=== PATIENT | male | born 1940 | race Caucasian/White ===

== ENCOUNTER → 2016-10-31 | Outpatient (CLI) | payer MEDICARE, OTHER | LOC: RAD 07:06 | PROVIDERS: ATTEND Internal Medicine Hematology & Oncology | DX: D47.2 Monoclonal gammopathy (principal) | CPT/HCPCS: 82565; 74183; A9576 ==

== ENCOUNTER 2019-04-17 20:03 | Observation (INO) | payer MEDICARE, OTHER ==
[2019-04-17] MEDS ORDERED: ACETAMINOPHEN 325 MG TABLET PO ONE (20:39)
[2019-04-17] MEDS ORDERED: ONDANSETRON HCL INJ/PF 4 MG/2 ML SDV IV ONE (20:40)
--- NOTE | 2019-04-17 20:42 | ER Document Report ---
ED Medical Screen (RME) - General Chief Complaint: Pain All Over Stated Complaint: BODY ACHES,CHILLS Time Seen by Provider: 04/17/19 20:36 Primary Care Provider: YOABNI HUDSON MD [Primary Care Provider] - Follow up as needed Information source: Patient Notes: Patient presents complaining of shaking, generalized body aches mild cough urinary frequency nausea and diarrhea. Patient states that at home he did have some chest pain although the pain has resolved at this time. Patient with fever of 102 at this time. Family states that patient was recently diagnosed with Crohn's disease. Patient also has a history of hypertension and dyslipidemia. Patient denies any abdominal pain symptoms. I have greeted and performed a rapid initial assessment of this patient. A comprehensive ED assessment and evaluation of the patient, analysis of test results and completion of the medical decision making process will be conducted by additional ED providers. TRAVEL OUTSIDE OF THE [place] IN LAST 30 DAYS: No - Related Data Allergies/Adverse Reactions: doxycycline Allergy (Verified 04/17/19 20:31) Physical Exam - Vital signs Vitals: Temp Pulse Resp BP Pulse Ox 102.4 F H 104 H 18 182/78 H 96 04/17/19 20:28 04/17/19 20:28 04/17/19 20:28 04/17/19 20:28 04/17/19 20:28 - General General appearance: Alert Notes: Mild tachycardia, chest nontender, patient with chills - Cardiovascular Rhythm: Regular, Tachycardia Heart sounds: S1 appreciated, S2 appreciated Course - Vital Signs Vital signs: Temp Pulse Resp BP Pulse Ox 102.4 F H 104 H 18 182/78 H 96 04/17/19 20:28 04/17/19 20:28 04/17/19 20:28 04/17/19 20:28 04/17/19 20:28 Doctor's Discharge - Discharge Referrals: YOBANI HUDSON MD [Primary Care Provider] - Follow up as needed
--- NOTE | 2019-04-17 21:15 | RADIOLOGY REPORT (SQ) ---
EXAM DESCRIPTION: XR CHEST 2 VIEWS COMPLETED DATE/TME: 04/17/2019 20:40 CLINICAL HISTORY: 78 years, Male, cp, mild cough COMPARISON: None. NUMBER OF VIEWS: 2 TECHNIQUE: 2 view chest LIMITATIONS: None. FINDINGS: The heart size is normal. Underlying COPD. Osteopenia. Lungs clear. No pneumothorax IMPRESSION: COPD. Lungs are clear copyright 2011 [employer]- All Rights Reserved
[2019-04-17 21:51] LABS: ABSOLUTE BASOPHILS # (AUTO) 0.1 10^3/uL (0.0-0.2); ABSOLUTE EOSINOPHILS # (AUTO) 0.1 10^3/uL (0.0-0.6); ABSOLUTE LYMPHOCYTES (AUTO) 0.7 10^3/uL (0.5-4.7); ABSOLUTE MONOCYTES (AUTO) 0.5 10^3/uL (0.1-1.4); ABSOLUTE NEUT (AUTO) 11.9 10^3/uL (1.7-8.2); BASOPHILS % (AUTO) 0.4 % (0-2); EOSINOPHILS % (AUTO) 0.7 % (0-6); HEMATOCRIT 41.2 % (37.9-51.0); HEMOGLOBIN 13.7 g/dL (13.5-17.0); LYMPHOCYTES % (AUTO) 5.5 % (13-45); MEAN CORPUSCULAR HEMOGLOBIN 29.4 pg (27.0-33.4); MEAN CORPUSCULAR HGB CONC 33.2 g/dL (32.0-36.0); MEAN CORPUSCULAR VOLUME 89 fl (80-97); MONOCYTES % (AUTO) 3.9 % (3-13); RED BLOOD COUNT 4.65 10^6/uL (4.35-5.55); RED CELL DISTRIBUTION WIDTH 13.8 % (11.5-14.0); SEGMENTED NEUTROPHILS % (AUTO) 89.5 % (42-78); TOTAL CELLS COUNTED % (AUTO) 100 %
[2019-04-17 22:00] LABS: APPEARANCE,URINE CLEAR; BILIRUBIN,URINE NEGATIVE (NEGATIVE); COLOR,URINE YELLOW; GLUCOSE, URINE NEGATIVE (NEGATIVE); KETONES,URINE TRACE mg/dL (NEGATIVE); PROTEIN,URINE 30 mg/dL (NEGATIVE); UROBILINOGEN,URINE NEGATIVE mg/dL (<2.0)
[2019-04-17 22:06] LABS: INTERNATIONAL RATION (INR) 1.03; PROTHROMBIN TIME 13.5 SEC (11.4-15.4)
[2019-04-17 22:10] LABS: A TYPE INFLUENZA AG NEGATIVE (NEGATIVE); B INFLUENZA AG NEGATIVE (NEGATIVE)
[2019-04-17 22:14] LABS: ALBUMIN 4.3 g/dL (3.5-5.0); ALKALINE PHOSPHATASE 69 U/L (38-126); ANION GAP 12 (5-19); ASPARTATE AMINO TRANSFERASE 21 U/L (17-59); BILIRUBIN,DIRECT 0.1 mg/dL (0.0-0.4); BILIRUBIN,TOTAL 0.4 mg/dL (0.2-1.3); BLOOD UREA NITROGEN 21 mg/dL (7-20); CALCIUM 9.7 mg/dL (8.4-10.2); CARBON DIOXIDE 23 mmol/L (22-30); CHLORIDE 105 mmol/L (98-107); GLUCOSE 127 mg/dL (75-110); PLATELET COUNT 295 10^3/uL (150-450); POTASSIUM 3.5 mmol/L (3.6-5.0); TOTAL PROTEIN 7.8 g/dL (6.3-8.2)
[2019-04-17 22:15] LABS: WHITE BLOOD COUNT 13.3 10^3/uL (4.0-10.5)
[2019-04-17 22:42] LABS: VENOUS BLOOD HCO3 23.2 mmol/L (20-32); VENOUS BLOOD PCO2 33.7 mmHg (35-63); VENOUS BLOOD PH 7.46 (7.30-7.42)
[2019-04-18] MEDS ORDERED: ACETAMINOPHEN 325 MG TABLET ONE (00:15)
[2019-04-18] MEDS ORDERED: NORMAL SALINE 1000 ML 1,000 ML IV ONE (02:21)
[2019-04-18] MEDS ORDERED: MORPHINE SULFATE 10 MG/ML INJ IV ONE (02:21)
--- NOTE | 2019-04-18 02:23 | ER Document Report ---
ED General - General Chief Complaint: Pain All Over Stated Complaint: BODY ACHES,CHILLS Time Seen by Provider: 04/17/19 20:36 Notes: Patient is a 78-year-old male that comes emergency department for chief complaint of fever with shaking, generalized body aches, nausea without vomiting, a few loose stools without blood. He reports mild cough but states this is his normal with COPD, he does not currently smoke. He denies chest pain or current headache. Past medical history includes hypertension, type 2 diabetes, and recently diagnosed Crohn's on budesonide and mesalamine. TRAVEL OUTSIDE OF THE [place] IN LAST 30 DAYS: No - Related Data Allergies/Adverse Reactions: doxycycline Allergy (Verified 04/17/19 20:31) Past Medical History - General Information source: Patient - Social History Smoking Status: Former Smoker Chew tobacco use (# tins/day): No Frequency of alcohol use: None Drug Abuse: None Lives with: Family Family History: Reviewed & Not Pertinent Patient has suicidal ideation: No Patient has homicidal ideation: No - Past Medical History Cardiac Medical History: Reports: Hx Hypercholesterolemia, Hx Hypertension Endocrine Medical History: Reports: Hx Diabetes Mellitus Type 2 Past Surgical History: Reports: Hx Orthopedic Surgery - Right knee, neck Review of Systems - Review of Systems Constitutional: See HPI EENT: No symptoms reported Cardiovascular: No symptoms reported Respiratory: See HPI Gastrointestinal: See HPI Genitourinary: No symptoms reported Male Genitourinary: No symptoms reported Musculoskeletal: No symptoms reported Skin: No symptoms reported Hematologic/Lymphatic: No symptoms reported Neurological/Psychological: No symptoms reported Physical Exam - Vital signs Vitals: Temp Pulse Resp BP Pulse Ox 102.4 F H 104 H 18 182/78 H 96 04/17/19 20:28 04/17/19 20:28 04/17/19 20:28 04/17/19 20:28 04/17/19 20:28 - Notes Notes: GENERAL: Alert, interacts well. No acute distress. HEAD: Normocephalic, atraumatic. EYES: Pupils equal, round, and reactive to light. Extraocular movements intact. ENT: Oral mucosa moist, tongue midline. Oropharynx unremarkable. Airway patent. NECK: Full range of motion. Supple. Trachea midline. No nuchal rigidity. LUNGS: Clear to auscultation bilaterally, no wheezes, rales, or rhonchi. No respiratory distress. HEART: Regular rate and rhythm. No murmur ABDOMEN: Generalized abdominal tenderness without specific area of guarding. No rigidity. Bowel sounds present throughout. GENITOURINARY: Deferred EXTREMITIES: Moves all 4 extremities spontaneously. No edema, normal radial and dorsalis pedis pulses bilaterally. No cyanosis. BACK: no cervical, thoracic, lumbar midline tenderness. No saddle anesthesia, normal distal neurovascular exam. Moves all extremities in full range of motion. NEUROLOGICAL: Alert and oriented x3. Normal speech. Cranial nerves II through XII grossly intact. PSYCH: Normal affect, normal mood. SKIN: Slightly pale but otherwise unremarkable. A few healed insect bites on the lower extremities. Course - Re-evaluation Re-evalutation: Patient is mildly uncomfortable in appearance but he is alert, oriented, conversational. He does have general abdominal tenderness on exam, clear lungs, unremarkable skin exam, no nuchal rigidity. No flank pain. Patient was initially febrile, hypertensive, this did improve with treatment. He is not hypotensive or tachycardic. CBC shows leukocytosis at 13.3 with elevation of neutrophils. No bandemia. Lactic acid is unremarkable. Chemistry is nonspecific. Chest x-ray does not show pneumonia. Urinalysis does not show convincing urinary tract infection. Because of patient's presentation, abdominal tenderness, fever, CAT scan will be performed to rule out emergent etiology. CAT scan showing ileitis but nonspecific otherwise. Based on patient's abdominal pain, fever, pain on abdominal exam, and ileitis he was started on Cipro and Flagyl. I did discuss with Dr. Parker. Because of his age, work-up, presentation, he recommends IV antibiotics and admission. I discussed this with family and patient, they state appreciation and agreement with this plan. Discussed with Dr. Langley, hospitalist, patient accepted to observation status on the medical floor. - Vital Signs Vital signs: Temp Pulse Resp BP Pulse Ox 98.3 F 75 12 145/67 H 98 04/18/19 05:13 04/18/19 05:13 04/18/19 05:13 04/18/19 05:13 04/18/19 05:13 - Laboratory Result Diagrams: 04/17/19 21:20 04/17/19 21:20 Laboratory results interpreted by me: 04/17/19 04/17/19 04/17/19 21:20 21:20 21:20 WBC 13.3 H Lymph % (Auto) 5.5 L Absolute Neuts (auto) 11.9 H Seg Neutrophils % 89.5 H VBG pH VBG pCO2 Potassium 3.5 L BUN 21 H Glucose 127 H POC Glucose 129 H Urine Protein Urine Ketones Urine Blood Leukocyte Esterase Rfl Urine Ascorbic Acid 04/17/19 04/17/19 21:20 22:11 WBC Lymph % (Auto) Absolute Neuts (auto) Seg Neutrophils % VBG pH 7.46 H VBG pCO2 33.7 L Potassium BUN Glucose POC Glucose Urine Protein 30 H Urine Ketones TRACE H Urine Blood SMALL H Leukocyte Esterase Rfl TRACE H Urine Ascorbic Acid 40 H Discharge - Discharge Clinical Impression: Abdominal pain Qualifiers: Abdominal location: generalized Qualified Code(s): R10.84 - Generalized abdominal pain Fever Qualifiers: Fever type: unspecified Qualified Code(s): R50.9 - Fever, unspecified Leukocytosis Qualifiers: Leukocytosis type: unspecified Qualified Code(s): D72.829 - Elevated white blood cell count, unspecified Condition: Stable Disposition: ADMITTED OBSERVATION Admitting Provider: Shivam (Hospitalist) Unit Admitted: Medical Floor
--- NOTE | 2019-04-18 03:24 | RADIOLOGY REPORT (SQ) ---
CLINICAL HISTORY: abd pain, fever COMPARISON: None. TECHNIQUE: CT ABDOMEN PELVIS WITH IV CONTRAST on 04/18/2019 2:20 AM CDT This exam was performed according to our departmental dose-optimization program, which includes automated exposure control, adjustment of the mA and/or kV according to patient size and/or use of iterative reconstruction technique. FINDINGS: Lower lungs are clear. Abdomen: There is small left hepatic lobe cysts. There are small fat-containing hernias. There is no biliary dilatation. Gallbladder is normal in appearance. The pancreas and spleen are normal in appearance. The adrenal glands and kidneys are unremarkable. Abdominal aorta is normal in course and caliber without aneurysm. There is no free air. There is no retroperitoneal adenopathy. Pelvis: There is mild diverticulosis of the left colon. Cecum appears to be mobile and is within the anterior midline upper abdomen. There is mild distention of several small bowel loops in the right abdomen. There is mild segmental thickening of mid to distal ileum, most apparent in the right lower quadrant anteriorly. Urinary bladder is unremarkable. There is no free fluid. Skeleton: There are no acute osseous findings. No suspicious bony lesions. IMPRESSION: Abnormal segmental thickening of ileum in the right lower quadrant. This is likely due to an infectious or inflammatory ileitis. Nonspecific more proximal small bowel distention.
[2019-04-18] MEDS ORDERED: CIPROFLOXACIN 400 MG/D5W RTU 400 MG/200 ML RTUPB IV ONE (03:31)
[2019-04-18] MEDS ORDERED: GLUCAGON,HUMAN RECOMB 1 MG INJ IM PRN (03:43)
[2019-04-18] MEDS ORDERED: ONDANSETRON HCL INJ/PF 4 MG/2 ML SDV IV PRN ×2 (03:43→07:30)
[2019-04-18] MEDS ORDERED: DEXTROSE 40% GEL 15 GM TUBE PO PRN ×2 (03:43)
[2019-04-18] MEDS ORDERED: ACETAMINOPHEN 325 MG TABLET PO PRN (03:43)
[2019-04-18] MEDS ORDERED: DEXTROSE 50%-WATER 25 GM/50 ML DISP.SYRIN IV PRN ×2 (03:43)
[2019-04-18] MEDS ORDERED: MAG HYDROX/AL HYDROX/SIMETH SUSP 30 ML UDCUP PO PRN (03:43)
[2019-04-18] MEDS ORDERED: METRONIDAZOLE 500 MG/NS RTU 500 MG/100 ML RTUPB IV ONE (04:00)
--- NOTE | 2019-04-18 05:04 | PDOC H&P ---
History of Present Illness Admission Date/PCP: 04/18/19 03:49 RUSS CRUZ MD Patient complains of: Fever and chills History of Present Illness: CHRISS BARRETT is a 78 year old male with a past medical history of COPD, hypertension, dyslipidemia, type 2 diabetes and Crohn's disease. Patient recently diagnosed with Crohn's consistent with endoscopy, personal history of vitiligo, diabetes and family history of Crohn's with pyoderma gangrenosum. He was started on budesonide and mesalamine and had initial improvement but developed fever and chills prompting evaluation in the emergency room. He is found to have leukocytosis, fever, ileitis by CT. He started on empiric antibiotics and referred to the hospitalist for admission. Past Medical History Cardiac Medical History: Reports: Hyperlipidema, Hypertension Endocrine Medical History: Reports: Diabetes Mellitus Type 2 Past Surgical History Past Surgical History: Reports: Orthopedic Surgery - Right knee, neck Social History Information Source: Patient Lives with: Family Smoking Status: Former Smoker Electronic Cigarette use?: No Frequency of Alcohol Use: Occasional Drugs: None - Advance Directive Resuscitation Status: Full Code Family History Family History: Other - Inflammatory bowel disease Parental Family History Reviewed: Yes Children Family History Reviewed: Yes Sibling(s) Family History Reviewed.: Yes Medication/Allergy Home Medications: Amlodipine Besylate [Norvasc 5 mg Tablet] 5 mg PO DAILY 04/17/19 Mesalamine [Apriso ER 0.375 gm Cap.sr] 2 cap.sr PO TID 04/17/19 Omeprazole 20 mg PO DAILY 04/17/19 Pioglitazone HCl [Actos 15 mg Tablet] 1 tab PO DAILY 04/17/19 Pravastatin Sodium 20 mg PO DAILY 04/17/19 Sitagliptin Phosphate [Januvia 50 mg Tablet] 50 mg PO DAILY 04/17/19 Spironolactone [Aldactone 25 mg Tablet] 25 mg PO DAILY 04/17/19 Valsartan 320 mg PO DAILY 04/17/19 Allergies/Adverse Reactions: doxycycline Allergy (Verified 04/17/19 20:31) Review of Systems Constitutional: ABSENT: chills, fever(s), headache(s), weight gain, weight loss Eyes: ABSENT: visual disturbances Ears: ABSENT: hearing changes Cardiovascular: ABSENT: chest pain, dyspnea on exertion, edema, orthropnea, palpitations Respiratory: ABSENT: cough, hemoptysis Gastrointestinal: ABSENT: abdominal pain, constipation, diarrhea, hematemesis, hematochezia, nausea, vomiting Genitourinary: ABSENT: dysuria, hematuria Musculoskeletal: ABSENT: joint swelling Integumentary: ABSENT: rash, wounds Neurological: ABSENT: abnormal gait, abnormal speech, confusion, dizziness, focal weakness, syncope Psychiatric: ABSENT: anxiety, depression, homidical ideation, suicidal ideation Endocrine: ABSENT: cold intolerance, heat intolerance, polydipsia, polyuria Hematologic/Lymphatic: ABSENT: easy bleeding, easy bruising Physical Exam Vital Signs: Temp Pulse Resp BP Pulse Ox 99.7 F 93 14 162/68 H 97 04/18/19 01:47 04/18/19 00:06 04/18/19 03:07 04/18/19 02:01 04/18/19 03:07 Intake & Output 04/16/19 04/17/19 04/18/19 11:59 11:59 11:59 Intake Total 1200 Balance 1200 Weight 93.5 kg General appearance: PRESENT: cooperative, mild distress, well-developed, well- nourished Head exam: PRESENT: atraumatic, normocephalic Eye exam: PRESENT: conjunctiva pink, EOMI, PERRLA. ABSENT: scleral icterus Ear exam: PRESENT: normal external ear exam Mouth exam: PRESENT: moist, tongue midline Neck exam: ABSENT: carotid bruit, JVD, lymphadenopathy, thyromegaly Respiratory exam: PRESENT: clear to auscultation juanis. ABSENT: rales, rhonchi, wheezes Cardiovascular exam: PRESENT: RRR. ABSENT: diastolic murmur, rubs, systolic murmur Pulses: PRESENT: normal dorsalis pedis pul Vascular exam: PRESENT: normal capillary refill GI/Abdominal exam: PRESENT: distended, hyperactive bowel sounds. ABSENT: firm, guarding, hernia, tenderness Rectal exam: PRESENT: deferred Extremities exam: PRESENT: full ROM. ABSENT: calf tenderness, clubbing, pedal edema Neurological exam: PRESENT: alert Psychiatric exam: PRESENT: appropriate affect, normal mood. ABSENT: homicidal ideation, suicidal ideation Skin exam: PRESENT: dry, intact, warm. ABSENT: cyanosis, rash Results Laboratory Results: 04/17/19 21:20 04/17/19 21:20 04/17/19 04/17/19 04/17/19 21:20 21:20 21:20 WBC 13.3 H RBC 4.65 Hgb 13.7 Hct 41.2 MCV 89 MCH 29.4 MCHC 33.2 RDW 13.8 Plt Count 295 Seg Neutrophils % 89.5 H VBG pH VBG pCO2 VBG HCO3 VBG Base Excess Sodium 140.4 Potassium 3.5 L Chloride 105 Carbon Dioxide 23 Anion Gap 12 BUN 21 H Creatinine 0.88 Est GFR ( Amer) > 60 Glucose 127 H Lactic Acid Calcium 9.7 Total Bilirubin 0.4 AST 21 Alkaline Phosphatase 69 Total Protein 7.8 Albumin 4.3 Urine Color YELLOW Urine Appearance CLEAR Urine pH 5.0 Ur Specific [place] 1.020 Urine Protein 30 H Urine Glucose (UA) NEGATIVE Urine Ketones TRACE H Urine Blood SMALL H Urine RBC (Auto) 4 04/17/19 04/17/19 22:11 22:11 WBC RBC Hgb Hct MCV MCH MCHC RDW Plt Count Seg Neutrophils % VBG pH 7.46 H VBG pCO2 33.7 L VBG HCO3 23.2 VBG Base Excess 0 Sodium Potassium Chloride Carbon Dioxide Anion Gap BUN Creatinine Est GFR ( Amer) Glucose Lactic Acid 1.2 Calcium Total Bilirubin AST Alkaline Phosphatase Total Protein Albumin Urine Color Urine Appearance Urine pH Ur Specific [place] Urine Protein Urine Glucose (UA) Urine Ketones Urine Blood Urine RBC (Auto) 04/17/19 21:20 Troponin I < 0.012 Impressions: Chest X-Ray 04/17/19 20:40 IMPRESSION: COPD. Lungs are clear copyright 2011 [employer]- All Rights Reserved Abdomen/Pelvis CT 04/18/19 02:20 IMPRESSION: Abnormal segmental thickening of ileum in the right lower quadrant. This is likely due to an infectious or inflammatory ileitis. Nonspecific more proximal small bowel distention. Assessment and Plan - Diagnosis (1) Crohn's disease Is this a current diagnosis for this admission?: Yes Plan: Solu-Medrol, Flagyl, Cipro, clear liquids, advance diet as tolerated (2) Ileitis Is this a current diagnosis for this admission?: Yes Plan: Secondary to #1, education (3) Diabetes Is this a current diagnosis for this admission?: Yes Plan: Humalog sliding scale Qac (4) Fever Qualifiers: Fever type: unspecified Qualified Code(s): R50.9 - Fever, unspecified Is this a current diagnosis for this admission?: Yes Plan: Secondary to #1 - Time Time Spent with patient: 25-34 minutes
[2019-04-18] MEDS ORDERED: METHYLPREDNISOLONE INJ 125 MG/2 ML SDV IV SCH (06:00)
[2019-04-18] MEDS: NORMAL SALINE 1000 ML 1,000 ML IV PRN ×2 (06:02→11:03)
[2019-04-18] MEDS: PANTOPRAZOLE SODIUM 20 MG TABLET.DR PO SCH (06:04)
[2019-04-18] MEDS: HEPARIN SOD (PORCINE) 5,000 UNIT/ML 1 ML VIAL SUBCUT SCH ×3 (06:08→22:25)
[2019-04-18] MEDS: POTASSI CL 20 MEQ/50 ML RIDER 20 MEQ/50 ML RTUPB IV SCH ×2 (06:08→09:19)
[2019-04-18] MEDS: INSULIN LISPRO 100 UNIT/ML 3 ML VIAL SUBCUT SCH ×3 (07:43→16:50)
[2019-04-18] MEDS: MAGNESIUM SULFATE/D5W 1 GM/100 ML RTUPB IV SCH ×3 (07:56→12:11)
[2019-04-18] MEDS ORDERED: INFLUENZA QUAD (6MOS+) 2019-20 VAC 0.5 ML SYR IM ONE (08:28)
[2019-04-18] MEDS ORDERED: MAGNESIUM SULFATE PF/INJ 40 MEQ/10 ML SDV IV ONE (08:31)
[2019-04-18] MEDS: VALSARTAN 160 MG TABLET PO SCH (09:19)
[2019-04-18] MEDS: DOCUSATE SODIUM 100 MG CAPSULE PO SCH ×2 (09:19→17:15)
[2019-04-18] MEDS: METRONIDAZOLE 500 MG TABLET PO SCH ×3 (09:19→20:25)
[2019-04-18] MEDS: AMLODIPINE BESYLATE 5 MG TABLET PO SCH (09:20)
[2019-04-18] MEDS: MESALAMINE 250 MG CAPSULE.SA PO SCH (11:02)
[2019-04-18] MEDS: METHYLPREDNISOLONE INJ 40 MG/1 ML SDV IV SCH ×2 (14:27→22:26)
[2019-04-18] MEDS: CIPROFLOXACIN 400 MG/D5W RTU 400 MG/200 ML RTUPB IV SCH (17:17)
--- NOTE | 2019-04-18 20:20 | EKG REPORT ---
SEVERITY:- ABNORMAL ECG - SINUS TACHYCARDIA RIGHT BUNDLE BRANCH BLOCK : Confirmed by: Rosita Mason MD 18-Apr-2019 20:19:26
[2019-04-18] MEDS ORDERED: ATORVASTATIN CALCIUM 10 MG TABLET PO SCH (22:00)
[2019-04-19] MEDS: METRONIDAZOLE 500 MG TABLET PO SCH ×2 (03:18→09:01)
[2019-04-19] MEDS: CIPROFLOXACIN 400 MG/D5W RTU 400 MG/200 ML RTUPB IV SCH (05:51)
[2019-04-19] MEDS: METHYLPREDNISOLONE INJ 40 MG/1 ML SDV IV SCH (05:52)
[2019-04-19] MEDS: PANTOPRAZOLE SODIUM 20 MG TABLET.DR PO SCH (05:52)
[2019-04-19] MEDS: HEPARIN SOD (PORCINE) 5,000 UNIT/ML 1 ML VIAL SUBCUT SCH (05:52)
[2019-04-19 06:15] LABS: ABSOLUTE LYMPHOCYTES (AUTO) 0.9 10^3/uL (0.5-4.7); ABSOLUTE MONOCYTES (AUTO) 0.5 10^3/uL (0.1-1.4); ABSOLUTE NEUT (AUTO) 9.2 10^3/uL (1.7-8.2); BASOPHILS % (AUTO) 0.1 % (0-2); HEMATOCRIT 38.5 % (37.9-51.0); HEMOGLOBIN 12.9 g/dL (13.5-17.0); LYMPHOCYTES % (AUTO) 8.6 % (13-45); MEAN CORPUSCULAR HEMOGLOBIN 29.3 pg (27.0-33.4); MEAN CORPUSCULAR HGB CONC 33.6 g/dL (32.0-36.0); MEAN CORPUSCULAR VOLUME 87 fl (80-97); MONOCYTES % (AUTO) 4.5 % (3-13); PLATELET COUNT 268 10^3/uL (150-450); RED CELL DISTRIBUTION WIDTH 13.9 % (11.5-14.0); SEGMENTED NEUTROPHILS % (AUTO) 86.8 % (42-78); TOTAL CELLS COUNTED % (AUTO) 100 %; WHITE BLOOD COUNT 10.6 10^3/uL (4.0-10.5)
[2019-04-19 06:37] LABS: ANION GAP 9 (5-19); BLOOD UREA NITROGEN 17 mg/dL (7-20); CALCIUM 9.2 mg/dL (8.4-10.2); CARBON DIOXIDE 24 mmol/L (22-30); CHLORIDE 107 mmol/L (98-107); GLUCOSE 204 mg/dL (75-110); POTASSIUM 3.7 mmol/L (3.6-5.0)
[2019-04-19 08:45] VITALS: BP 136/69
[2019-04-19] MEDS: INSULIN LISPRO 100 UNIT/ML 3 ML VIAL SUBCUT SCH (09:00)
[2019-04-19] MEDS: VALSARTAN 160 MG TABLET PO SCH (09:49)
[2019-04-19] MEDS: MESALAMINE 250 MG CAPSULE.SA PO SCH (09:49)
[2019-04-19] MEDS: AMLODIPINE BESYLATE 5 MG TABLET PO SCH (09:50)
[2019-04-19] MEDS: DOCUSATE SODIUM 100 MG CAPSULE PO SCH (09:50)
--- NOTE | 2019-04-19 10:17 | PDOC DISCHARGE SUMMARY ---
Impression - Admit/DC Date/PCP Admission Date/Primary Care Provider: 04/18/19 03:49 RUSS CURZ MD Discharge Date: 04/19/19 - Discharge Diagnosis (2) Fever Is this a current diagnosis for this admission?: Yes (3) Ileitis Is this a current diagnosis for this admission?: Yes - Assessment Summary: 78 year old male with a history of Crohn's disease who presented with fever malaise chills and some abdominal pain. Upon presentation vitals revealed a fever. Blood work revealed leukocytosis with white blood cell count of 13. Urinalysis was negative. CT of the abdomen and pelvis revealed inflammation of the ileum. Patient was started on Solu-Medrol and later de-escalated to prednisone with suspicion of Crohn's flare. Patient was also started on antibiotics Flagyl to cover in case of any infectious ileitis. Patient's fever resolved and his white blood cell count improved significantly. Patient is discharged to complete 5 days of prednisone and a few days of Flagyl. Patient is to follow-up in clinic with his baby doctor and his primary care doctor within a week. - Additional Information Resuscitation Status: Full Code Discharge Diet: As Tolerated, Other (Comments) Discharge Activity: Activity As Tolerated Referrals: RUSS CRUZ MD [Primary Care Provider] - 04/25/19 9:30 am Prescriptions: Metronidazole [Flagyl 500 mg Tablet] 500 mg PO Q6A 4 Days #12 tablet Prednisone 30 mg PO DAILY 5 Days tablet Home Medications: Amlodipine Besylate [Norvasc 5 mg Tablet] 5 mg PO DAILY 04/18/19 Ascorbic Acid [Vitamin C] 1,000 mg PO QHS 04/18/19 Aspirin [Ecotrin 81 mg EC Tablet] 81 mg PO DAILY 04/18/19 Budesonide [Entocort EC] 3 mg PO TID 04/18/19 Cholecalciferol (Vitamin D3) [Vitamin D3 1000 Unit Tablet] 1,000 unit PO DAILY 04/18/19 Doxycycline Hyclate 100 mg PO DAILYP PRN 04/18/19 Mesalamine [Apriso ER 0.375 gm Cap.sr] 0.375 gm PO QID 04/18/19 Multivitamin [Multivitamins] 1 each PO DAILY 04/18/19 Rebuck-3/Dha/Epa/Fish Oil [Fish Oil 1,000 mg Softgel] 1 each PO QHS 04/18/19 Omeprazole 20 mg PO QHS 04/18/19 Pioglitazone HCl [Actos 15 mg Tablet] 1 tab PO DAILY 04/18/19 Pravastatin Sodium [Pravachol] 20 mg PO QHS 04/18/19 Sitagliptin Phosphate [Januvia 50 mg Tablet] 50 mg PO DAILY 04/18/19 Spironolactone [Aldactone 25 mg Tablet] 25 mg PO Q12 04/18/19 Metronidazole [Flagyl 500 mg Tablet] 500 mg PO Q6A 4 Days #12 tablet 04/19/19 Prednisone 30 mg PO DAILY 5 Days tablet 04/19/19 History of Present Illiness History of Present Illness: CHRISS BARRETT is a 78 year old male with a history of Crohn's disease who presented with fever malaise chills and some abdominal pain. Upon presentation vitals revealed a fever. Patient admitted for possible Crohn's flare versus infectious ileitis. Physical Exam Vital Signs: Temp Pulse Resp BP Pulse Ox 97.6 F 65 22 H 136/69 H 95 04/19/19 09:32 04/19/19 09:32 04/19/19 09:32 04/19/19 09:32 04/19/19 09:32 Intake & Output 04/18/19 04/19/19 04/20/19 06:59 06:59 06:59 Intake Total 1300 4130 200 Output Total 600 700 Balance 700 3430 200 Weight 93.5 kg 94.1 kg General appearance: PRESENT: no acute distress, cooperative Head exam: PRESENT: atraumatic Eye exam: PRESENT: EOMI Mouth exam: PRESENT: moist Neck exam: ABSENT: JVD, tracheal deviation Respiratory exam: PRESENT: clear to auscultation juanis Cardiovascular exam: PRESENT: +S1 Vascular exam: PRESENT: normal capillary refill GI/Abdominal exam: PRESENT: normal bowel sounds, soft, tenderness - Mild lower abdominal. ABSENT: ascites Rectal exam: PRESENT: deferred Musculoskeletal exam: PRESENT: ambulatory Neurological exam: PRESENT: alert, oriented to person, oriented to place, oriented to time, oriented to situation Psychiatric exam: PRESENT: normal mood Results Laboratory Results: WBC 10.6 10^3/uL (4.0-10.5) H 04/19/19 05:52 RBC 4.40 10^6/uL (4.35-5.55) 04/19/19 05:52 Hgb 12.9 g/dL (13.5-17.0) L 04/19/19 05:52 Hct 38.5 % (37.9-51.0) 04/19/19 05:52 MCV 87 fl (80-97) 04/19/19 05:52 MCH 29.3 pg (27.0-33.4) 04/19/19 05:52 MCHC 33.6 g/dL (32.0-36.0) 04/19/19 05:52 RDW 13.9 % (11.5-14.0) 04/19/19 05:52 Plt Count 268 10^3/uL (150-450) 04/19/19 05:52 Lymph % (Auto) 8.6 % (13-45) L 04/19/19 05:52 [place] % (Auto) 4.5 % (3-13) 04/19/19 05:52 Eos % (Auto) 0.0 % (0-6) 04/19/19 05:52 Baso % (Auto) 0.1 % (0-2) 04/19/19 05:52 Absolute Neuts (auto) 9.2 10^3/uL (1.7-8.2) H 04/19/19 05:52 Absolute Lymphs (auto) 0.9 10^3/uL (0.5-4.7) 04/19/19 05:52 Absolute Monos (auto) 0.5 10^3/uL (0.1-1.4) 04/19/19 05:52 Absolute Eos (auto) 0.0 10^3/uL (0.0-0.6) 04/19/19 05:52 Absolute Basos (auto) 0.0 10^3/uL (0.0-0.2) 04/19/19 05:52 Seg Neutrophils % 86.8 % (42-78) H 04/19/19 05:52 PT 13.5 SEC (11.4-15.4) 04/17/19 21:20 INR 1.03 04/17/19 21:20 VBG pH 7.46 (7.30-7.42) H 04/17/19 22:11 VBG pCO2 33.7 mmHg (35-63) L 04/17/19 22:11 VBG HCO3 23.2 mmol/L (20-32) 04/17/19 22:11 VBG Base Excess 0 mmol/L 04/17/19 22:11 Sodium 140.4 mmol/L (137-145) 04/19/19 05:52 Potassium 3.7 mmol/L (3.6-5.0) 04/19/19 05:52 Chloride 107 mmol/L (98-107) 04/19/19 05:52 Carbon Dioxide 24 mmol/L (22-30) 04/19/19 05:52 Anion Gap 9 (5-19) 04/19/19 05:52 BUN 17 mg/dL (7-20) 04/19/19 05:52 Creatinine 0.71 mg/dL (0.52-1.25) 04/19/19 05:52 Est GFR ( Amer) > 60 (>60) 04/19/19 05:52 Est GFR (MDRD) Non-Af > 60 (>60) 04/19/19 05:52 Glucose 204 mg/dL (75-110) H 04/19/19 05:52 POC Glucose 192 mg/dL (70-110) H 04/19/19 08:12 Lactic Acid 1.2 mmol/L (0.7-2.1) 04/17/19 22:11 Calcium 9.2 mg/dL (8.4-10.2) 04/19/19 05:52 Magnesium 2.1 mg/dL (1.6-2.3) D 04/19/19 05:52 Total Bilirubin 0.4 mg/dL (0.2-1.3) 04/17/19 21:20 Direct Bilirubin 0.1 mg/dL (0.0-0.4) 04/17/19 21:20 Neonat Total Bilirubin Not Reportable 04/17/19 21:20 Neonat Direct Bilirubin Not Reportable 04/17/19 21:20 Neonat Indirect Bili Not Reportable 04/17/19 21:20 AST 21 U/L (17-59) 04/17/19 21:20 ALT 21 U/L (<50) 04/17/19 21:20 Alkaline Phosphatase 69 U/L (38-126) 04/17/19 21:20 Troponin I < 0.012 ng/mL 04/17/19 21:20 Total Protein 7.8 g/dL (6.3-8.2) 04/17/19 21:20 Albumin 4.3 g/dL (3.5-5.0) 04/17/19 21:20 Urine Color YELLOW 04/17/19 21:20 Urine Appearance CLEAR 04/17/19 21:20 Urine pH 5.0 (5.0-9.0) 04/17/19 21:20 Ur Specific [place] 1.020 04/17/19 21:20 Urine Protein 30 mg/dL (NEGATIVE) H 04/17/19 21:20 Urine Glucose (UA) NEGATIVE mg/dL (NEGATIVE) 04/17/19 21:20 Urine Ketones TRACE mg/dL (NEGATIVE) H 04/17/19 21:20 Urine Blood SMALL (NEGATIVE) H 04/17/19 21:20 Urine Nitrite (Reflex) NEGATIVE (NEGATIVE) 04/17/19 21:20 Urine Bilirubin NEGATIVE (NEGATIVE) 04/17/19 21:20 Urine Urobilinogen NEGATIVE mg/dL (<2.0) 04/17/19 21:20 Leukocyte Esterase Rfl TRACE (NEGATIVE) H 04/17/19 21:20 Urine RBC (Auto) 4 /HPF 04/17/19 21:20 Urine WBC (Reflex) 1 /HPF 04/17/19 21:20 Urine Mucus (Auto) RARE /LPF 04/17/19 21:20 Urine Ascorbic Acid 40 (NEGATIVE) H 04/17/19 21:20 Influenza A (Rapid) NEGATIVE (NEGATIVE) 04/17/19 21:20 Influenza B (Rapid) NEGATIVE (NEGATIVE) 04/17/19 21:20 04/17/19 21:20 Troponin I < 0.012 Impressions: Chest X-Ray 04/17/19 20:40 IMPRESSION: COPD. Lungs are clear copyright 2011 [employer]- All Rights Reserved Abdomen/Pelvis CT 04/18/19 02:20 IMPRESSION: Abnormal segmental thickening of ileum in the right lower quadrant. This is likely due to an infectious or inflammatory ileitis. Nonspecific more proximal small bowel distention. Stroke Is this a Stroke Patient?: No Acute Heart Failure - Is this a Heart Failure Patient?: No
== END 2019-04-19 11:03 | disposition home or self-care (01) ==
LOC: ER 20:03 → EH 04-18 03:49 → 4W 04-18 08:09 → 5 04-18 19:15
PROVIDERS: ADMIT Internal Medicine; ATTEND Internal Medicine
DX: K50.00 Crohn's disease of small intestine without complications (principal); R50.9 Fever, unspecified; D72.829 Elevated white blood cell count, unspecified; I10 Essential (primary) hypertension; E78.5 Hyperlipidemia, unspecified; E11.9 Type 2 diabetes mellitus without complications; J44.9 Chronic obstructive pulmonary disease, unspecified; L80 Vitiligo; R35.0 Frequency of micturition; R00.0 Tachycardia, unspecified; R07.9 Chest pain, unspecified; Z79.899 Other long term (current) drug therapy; Z79.52 Long term (current) use of systemic steroids; Z79.82 Long term (current) use of aspirin; Z87.891 Personal history of nicotine dependence; Z84.0 Family history of diseases of the skin and subcutaneous tissue; Z83.79 Family history of other diseases of the digestive system; Z79.84 Long term (current) use of oral hypoglycemic drugs; Z23 Encounter for immunization
CPT/HCPCS: 93005; 99285; 96361; 96375; 96365; 96366; 96367; 36415 ×3; 87040 ×2; 87045; 87086; 87205; 82962 ×3; 83735 ×2; 85025 ×2; 85610; 80048; 80053; 81001; 84484; 82803; 83605; 87804; 71046; 74177; 90686; 93010; A9270 ×15; J1644 ×2; J2920 ×2; J2930; J3490; J2270; J3475; J3480; J7030; J0744 ×2; G0378; J1815